=== PATIENT | female | born 1970 | race Caucasian/White ===

== ENCOUNTER → 2024-03-10 15:17 | Outpatient (REF) | payer BC, SELFPAY | LOC: WDC 15:17 | PROVIDERS: ATTENDING PHYSICIAN Obstetrics & Gynecology; FAMILY PHYSICIAN Internal Medicine | DX: Z12.31 Encounter for screening mammogram for malignant neoplasm of breast (principal) | CPT/HCPCS: 77063; 77067 ==

== ENCOUNTER → 2024-11-20 10:59 | Outpatient (REF) | payer BC, SELFPAY | LOC: WDC 10:59 | PROVIDERS: ATTENDING PHYSICIAN Obstetrics & Gynecology; FAMILY PHYSICIAN Internal Medicine | DX: N64.4 Mastodynia (principal); R14.0 Abdominal distension (gaseous) | CPT/HCPCS: 76642; 76830; 76856; 77061; 77065 ==

== ENCOUNTER → 2025-01-01 09:48 | Outpatient (REF) | payer BC, SELFPAY | LOC: HWRAD 09:48 | PROVIDERS: ATTENDING PHYSICIAN Urology; FAMILY PHYSICIAN Internal Medicine; REFERRING PHYSICIAN Obstetrics & Gynecology | DX: N83.292 Other ovarian cyst, left side (principal); R31.29 Other microscopic hematuria; N30.80 Other cystitis without hematuria | CPT/HCPCS: 76770; 76830; 76856 ==

== ENCOUNTER → 2025-02-15 15:09 | Outpatient (REF) | payer BC, SELFPAY | LOC: RAD 15:09 | PROVIDERS: ATTENDING PHYSICIAN Obstetrics & Gynecology; FAMILY PHYSICIAN Internal Medicine | DX: N83.202 Unspecified ovarian cyst, left side (principal) | CPT/HCPCS: 76830; 76856 ==

== ENCOUNTER → 2025-03-12 10:06 | Outpatient (REF) | payer BC, SELFPAY | LOC: WDC 10:06 | PROVIDERS: ATTENDING PHYSICIAN Obstetrics & Gynecology; FAMILY PHYSICIAN Internal Medicine | DX: N83.299 Other ovarian cyst, unspecified side (principal); R92.2 Inconclusive mammogram | CPT/HCPCS: 72197; 77062; 77066; A9575 ==

== ENCOUNTER → 2025-07-06 08:26 | Outpatient (REF) | payer BC, SELFPAY | LOC: HWRAD 08:26 | PROVIDERS: ATTENDING PHYSICIAN Obstetrics & Gynecology; FAMILY PHYSICIAN Internal Medicine | DX: D27.1 Benign neoplasm of left ovary (principal) | CPT/HCPCS: 76830; 76856 ==